=== PATIENT | male | born 1985 | race Hispanic/Latino ===

== ENCOUNTER 2025-03-21 15:44 | Observation (INO) | payer OTHER ==
[2025-03-21 16:18] LABS: #Basophils 0.08 10x3/uL (0.0-0.2); #Eosinophils 0.32 10x3/uL (0.0-0.7); #Neutrophils 4.37 10x3/uL (1.40-6.50); %Basophils 0.9 % (0.0-1.0); %Eosinophils 3.7 % (0.0-10.0); %Lymphocytes 36.6 % (21.0-51.0); %Neutrophils 50.1 % (42.0-75.0); Hematocrit 43.5 % (42.0-52.0); Hemoglobin 15.8 g/dL (14.0-18.0); Mean Corpuscular HGB CONC 36.3 g/dL (32.0-36.0); Mean Corpuscular Hemoglobin 31.3 pg (27.0-31.0); Mean Corpuscular Volume 86.3 fL (78.0-98.0); Mean Platelet Volume 13.4 fL (7.4-10.4); Platelet Count 193 10x3/uL (130-400); RBC Distribution Width 12.6 % (11.5-14.5); Red Blood Cell (RBC) Count 5.04 mill/uL (4.70-6.10); White Blood Cell (WBC) Count 8.72 10x3/uL (4.8-10.8)
[2025-03-21 16:26] LABS: ALT (SGPT) 43 U/L (Less than 45); AST (SGOT) 39 U/L (11-34); Albumin 4.9 g/dL (3.1-4.5); Alkaline Phosphatase 120 U/L (40-110); Anion Gap 15 mmol/L (10-20); BUN (Urea Nitrogen) 16 mg/dL (8.9-20.6); Bilirubin, Total 0.4 mg/dL (0.3-1.2); Calc. Creatinine Clearance 0 mL/min (70-130); Calcium 9.9 mg/dL (7.8-10.44); Carbon Dioxide 23 mmol/L (22-29); Chloride 112 mmol/L (98-107); Estimated GFR 114; Glucose 95 mg/dL (70-105); Potassium 3.8 mmol/L (3.5-5.1); Protein, Total 7.9 g/dL (6.0-8.3); Sodium 146 mmol/L (136-145)
[2025-03-21] MEDS ORDERED: Bupivacaine 0.25% 10 ML VIAL ONE (16:36)
[2025-03-21] MEDS ORDERED: Morphine 4 MG/ML VIAL ONE (16:36)
[2025-03-21] MEDS ORDERED: Ondansetron PF 4 MG/2 ML Vial ONE (16:36)
[2025-03-21] MEDS ORDERED: Boostrix 0.5 ML (Tdap) VIAL (>/=7 yrs of age) ONE ×2 (16:41→16:42)
[2025-03-21] MEDS ORDERED: Gentamicin 80 MG/2 ML VIAL ONE (18:13)
[2025-03-21] MEDS ORDERED: CEFAZOLIN 1 GM VIAL ONE (18:13)
[2025-03-21] MEDS ORDERED: Sodium Chloride 0.9% 100 ML ONE (18:14)
[2025-03-21] MEDS ORDERED: Sodium Chloride 0.9% 250 ML 250 ML ONE (18:14)
[2025-03-21] MEDS ORDERED: hydrALAZINE 20 MG/ML VIAL ONE (19:39)
[2025-03-21] MEDS ORDERED: Promethazine HCl 25 MG/ML VIAL IM PRN (20:06)
[2025-03-21] MEDS ORDERED: Morphine 4 MG/ML VIAL SLOW IVP PRN (20:06)
[2025-03-21] MEDS ORDERED: fentaNYL 50 mcg/mL 1 mL Vial SLOW IVP PRN (20:06)
[2025-03-21] MEDS ORDERED: Ondansetron PF 4 MG/2 ML Vial SLOW IVP PRN (20:06)
[2025-03-21] MEDS ORDERED: traMADol HCl 50 MG TAB PO PRN (20:06)
[2025-03-21] MEDS ORDERED: Milk Of Magnesia 30 ML UDCUP PO PRN (20:06)
[2025-03-21] MEDS ORDERED: HYDROcodone/Acetaminophen 10/325 mg Tablet PO PRN (20:06)
[2025-03-21] MEDS ORDERED: Communication Order-Pharmacy FS SCH (20:15)
[2025-03-21 21:36] VITALS: BMI 30.7
[2025-03-21] MEDS: Boostrix 0.5 ML (Tdap) VIAL (>/=7 yrs of age) IM ONE (22:28)
[2025-03-21] MEDS: TETANUS, DIPHTHERIA TOX,ADULT (TDVAX) 0.5 ML VIAL IM ONE (22:28)
[2025-03-21] MEDS: Aspirin 81 mg Enteric Coated Tablet PO SCH (22:39)
[2025-03-22 05:04] VITALS: TEMP 98.1
[2025-03-22] MEDS: HYDROcodone/Acetaminophen 5/325 mg Tablet PO PRN (10:38)
[2025-03-22 11:41] VITALS: BP 141/90
[2025-03-22] MEDS ORDERED: CEFAZOLIN 2 GM VIAL ONE (12:14)
[2025-03-22] MEDS ORDERED: Bupivacaine PF 0.5% 30 ML VIAL ONE (12:57)
[2025-03-22] MEDS ORDERED: Vancomycin 1 GM VIAL ONE (12:57)
[2025-03-22] MEDS ORDERED: Bacitracin Zinc Ointment 30 gm TUBE ONE (12:57)
[2025-03-22] MEDS ORDERED: fentaNYL PF 100 MCG/2 ML SYRINGE ONE (13:03)
[2025-03-22] MEDS ORDERED: PROPOFOL 40 ML ONE (13:03)
[2025-03-22] MEDS ORDERED: Ondansetron PF 4 MG/2 ML Vial ONE (13:04)
[2025-03-22] MEDS ORDERED: Lidocaine 1% PF 5 ML VIAL ONE (13:04)
[2025-03-22] MEDS ORDERED: Mineral Oil Sterile 10 ML VIAL ONE (13:16)
[2025-03-22] MEDS ORDERED: Ketorolac Tromethamine 30 MG (1 mL) VIAL ONE (14:20)
== END 2025-03-22 17:00 | disposition home or self-care (01) ==
LOC: ERS 15:44 → SURG A 18:38
PROVIDERS: ADMIT Orthopaedic Surgery Hand Surgery; ATTEND Orthopaedic Surgery Hand Surgery
PROC: 0PBR0ZZ Excision of Right Thumb Phalanx, Open Approach (ICD-10-PCS; principal; 2025-03-22)
PROC: 0HRFXK3 Replacement of Right Hand Skin with Nonautologous Tissue Substitute, Full Thickness, External Approach (ICD-10-PCS; 2025-03-22)
DX: S68.021A Partial traumatic metacarpophalangeal amputation of right thumb, initial encounter (principal); W26.9XXA Contact with unspecified sharp object(s), initial encounter
CPT/HCPCS: 80053; 85025; 90471; 90715; 96365; 96375; G0378; J0360; J0665; J0690; J1580; J1885; J2270; J2405; J2704; J3370; J7050